=== PATIENT | female | born 1995 | race Two or more races ===

== ENCOUNTER 2020-03-25 09:53 | Outpatient (CLI) | payer OTHER | END 2020-03-25 10:08 | disposition home or self-care (01) | LOC: RAD 09:53 | PROVIDERS: ATTEND Orthopaedic Surgery | DX: M41.85 Other forms of scoliosis, thoracolumbar region (principal) ==

== ENCOUNTER 2020-11-24 14:49 | Emergency (ER) | payer OTHER ==
[~2020-11-24] VITALS: Ht 165.1 cm; Wt 54.4 kg
[2020-11-24] MEDS ORDERED: VIENVA-28 TABL1 EACH (15:09)
== END 2020-11-24 20:19 | disposition home or self-care (01) ==
LOC: ER 14:49
DX: N93.8 Other specified abnormal uterine and vaginal bleeding (principal)